=== PATIENT | female | born 1990 | race Caucasian/White ===

== ENCOUNTER 2016-11-28 16:36 | Inpatient (IN) | payer BC ==
[~2016-11-28] VITALS: Ht 175.3 cm; Wt 86.2 kg
[2016-11-28] MEDS ORDERED: LACTATED RINGERS 1,000 ML IV SCH (17:23)
[2016-11-28] MEDS ORDERED: OXYTOCIN 10 UNITS/ML VIAL IM SCH (17:25)
[2016-11-28] MEDS ORDERED: METHYLERGONOVINE 0.2 MG/ML AMP IM PRN (17:25)
[2016-11-28] MEDS ORDERED: NALBUPHINE HYDROCHLORIDE 10 MG/ML VIAL IVP PRN (17:25)
[2016-11-28] MEDS ORDERED: CARBOPROST 250 MCG/ML AMP IM PRN (17:25)
[2016-11-28] MEDS ORDERED: AMPICILLIN 2,000 MG in NACL 0.9% MINI-BAG PLUS 100 ML IV SCH (17:25)
[2016-11-28] MEDS ORDERED: OXYTOCIN 20 UNITS/LR PREMIX 1,000 ML IV SCH (18:30)
[2016-11-28 18:33] LABS: BASOPHILS % (AUTO) 0.3 % (0.0-2.0); EOSINOPHILS # (AUTO) 0.4 K/uL (0-0.4); EOSINOPHILS % (AUTO) 2.3 % (0.0-4.0); HEMATOCRIT 35.4 % (36-48); HEMOGLOBIN 12.1 g/dL (12.0-16.0); LYMPHOCYTES # (AUTO) 1.8 K/uL (2.5-16.5); LYMPHOCYTES % (AUTO) 11.4 % (20.5-51.1); MEAN CORPUSCULAR HEMOGLOBIN 32 pg (27-31); MEAN CORPUSCULAR HGB CONC 34 g/dL (33-37); MEAN CORPUSCULAR VOLUME 93 fL (80-94); MONOCYTES # (AUTO) 1.3 K/uL (0.8-1.0); NEUTROPHILS # (AUTO) 12.7 K/uL (1.8-7.7); PLATELET COUNT (AUTO) 272 K/uL (140-450); RED BLOOD CELL COUNT(AUTO) 3.82 MIL/uL (4.20-5.40); RED CELL DISTRIBUTION WIDTH 12.6 % (11.6-13.7); WHITE BLOOD COUNT (AUTO) 16.2 K/uL (4.8-10.8)
[2016-11-28 18:38] LABS: APPEARANCE,URINE HAZY (CLEAR); BILIRUBIN,URINE NEGATIVE (NEGATIVE); BLOOD, URINE NEGATIVE (NEGATIVE); COLOR,URINE YELLOW (YELLOW); LEUKOCYTE ESTERASE ,URINE 3+ (NEGATIVE); NITRITE, URINE NEGATIVE (NEGATIVE); PH,URINE 6.5 (5.0-9.0); PROTEIN,URINE NEGATIVE (NEGATIVE); UGLUCOSE NEGATIVE (NEGATIVE); UROBILINOGEN,URINE 0.2 EU/dL (0.2 - 1)
[2016-11-28 18:55] LABS: BACTERIA,URINE 2+ /HPF (None Seen); RBC,URINE 0-3 /HPF (0-5)
[2016-11-28] MEDS ORDERED: AMPICILLIN 2,000 MG VIAL ONE (19:44)
[2016-11-28] MEDS ORDERED: OXYTOCIN 20 UNITS/LR PREMIX 1,000 ML IV ONE (20:17)
[2016-11-28] MEDS ORDERED: AMPICILLIN 1,000 MG in NACL 0.9% MINI-BAG PLUS 50 ML IV SCH (22:00)
[2016-11-28] MEDS ORDERED: PREN-546 PO (22:12)
[2016-11-28] MEDS ORDERED: PROMETHAZINE 25 MG/ML VIAL IVP PRN (22:15)
[2016-11-28] MEDS ORDERED: AMPICILLIN 1,000 MG VIAL ONE (23:07)
[2016-11-29] MEDS ORDERED: ROPIVACAINE 0.2%/NS PREMIX 250 ML EPI ONE (00:05)
[2016-11-29] MEDS ORDERED: OXYTOCIN 10 UNITS/ML VIAL ONE (01:52)
[2016-11-29] MEDS ORDERED: METHYLERGONOVINE 0.2 MG/ML AMP IM PRN ×2 (02:40→04:45)
[2016-11-29] MEDS ORDERED: MEASLES, MUMPS, AND RUBELLA 1 VIAL SQVAC PRN ×2 (02:40→04:45)
[2016-11-29] MEDS ORDERED: IBUPROFEN 800 MG TAB PO PRN ×2 (02:40→04:45)
[2016-11-29] MEDS ORDERED: TEMAZEPAM 15 MG CAP PO PRN ×2 (02:40→04:45)
[2016-11-29] MEDS ORDERED: HYDROcodone/APAP 5/325 MG 1 TAB TAB PO PRN ×2 (02:40→04:45)
[2016-11-29] MEDS ORDERED: oxyCODONE/APAP 5/325 MG 1 TAB TAB PO PRN ×2 (02:40→04:45)
[2016-11-29] MEDS ORDERED: BENZOCAINE/MENTHOL 20%-0.5% 60 GM CAN TP PRN (04:45)
[2016-11-29] MEDS ORDERED: OXYTOCIN 10 UNITS/ML VIAL IM PRN (04:45)
[2016-11-29] MEDS ORDERED: WITCH HAZEL 40 PAD PACKAGE TP PRN (04:45)
--- NOTE | 2016-11-29 08:10 | NUR ---
PATIENT HAS BEEN SCREENED AND CATEGORIZED LOW NUTRITION RISK. PATIENT WILL BE SEEN WITHIN 7 DAYS OF ADMISSION. 12/05/[address]
[2016-11-29] MEDS ORDERED: DOCUSATE SOD/SENNA 50/8.6 MG 1 TAB PO SCH ×2 (21:00)
[2016-11-30 05:34] LABS: HEMATOCRIT 34.1 % (36-48); HEMOGLOBIN 11.4 g/dL (12.0-16.0)
--- NOTE | 2016-11-30 08:55 | NUR ---
FAXED OB DELIVERY AND CLINICAL REQUEST TO [facility] [phone] PHONE IRMA [phone] [id number]. [id number] #[id number]
[2016-11-30] MEDS ORDERED: IBUP-2213 PO (09:12)
[2016-11-30] MEDS ORDERED: DOCUSATE SOD/SENNA 50/8.6 MG 1 TAB PO SCH (21:00)
== END 2016-11-30 20:00 | disposition home or self-care (01) | DRG 775 ==
LOC: MLD 16:36 → OBSVTOIN 17:21 → MFCC 11-29 04:40
PROVIDERS: ADMIT Obstetrics & Gynecology; ATTEND Obstetrics & Gynecology
PROC: 10E0XZZ Delivery of Products of Conception, External Approach (ICD-10-PCS; principal; 2016-11-29)
PROC: 3E0R3CZ (ICD-10-PCS; 2016-11-29)
PROC: 00HU33Z Insertion of Infusion Device into Spinal Canal, Percutaneous Approach (ICD-10-PCS; 2016-11-29)
PROC: 3E0234Z Introduction of Serum, Toxoid and Vaccine into Muscle, Percutaneous Approach (ICD-10-PCS; 2016-11-29)
DX: O99.824 Streptococcus B carrier state complicating childbirth (principal); O77.0 Labor and delivery complicated by meconium in amniotic fluid; O69.1XX0 Labor and delivery complicated by cord around neck, with compression, not applicable or unspecified; Z3A.39 39 weeks gestation of pregnancy; Z37.0 Single live birth; Z83.3 Family history of diabetes mellitus; Z82.49 Family history of ischemic heart disease and other diseases of the circulatory system; Z80.1 Family history of malignant neoplasm of trachea, bronchus and lung; Z23 Encounter for immunization
CPT/HCPCS: 36415; 51702; 59409; 81001; 85018; 85025; 86592; 86886; 86900; 86901; 87086; G0378; J0290; J2590; J2795; J7120